=== PATIENT | female | born 1945 ===

== ENCOUNTER 2024-02-29 06:35 | Day surgery (SDC) | payer BC, SELFPAY ==
[2024-02-29] VITALS (10 sets, daily range): BP systolic 110–158; BP diastolic 59–94; BMI 21.0
[2024-02-29 10:41] LABS: Hematocrit 25.2 % (37.0-47.0); Hemoglobin 8.6 g/dL (12.0-16.0); Mean Corp Hgb Conc. 34.1 g/dL (33.0-37.0); Mean Corpuscular Hgb 32.1 pg (27.0-31.0); Mean Platelet Volume 8.4 fL (7.4-10.4); Platelet Count 414 10^3/uL (130-400); Red Blood Cell Count 2.68 10^6/uL (4.20-5.40); Red Cell Dist. Width 13.1 % (11.5-14.5); White Blood Cell Count 7.8 10^3/uL (4.8-10.8)
[2024-02-29 19:06] LABS: Hematocrit 34.3 % (37.0-47.0); Hemoglobin 11.9 g/dL (12.0-16.0)
[2024-02-29] MEDS: ANCEF 5 IV (19:49)
== END 2024-02-29 19:56 | disposition home or self-care (01) ==
LOC: SDS 06:35
PROVIDERS: ATTENDING PHYSICIAN Orthopaedic Surgery Hand Surgery
DX: S42.201A Unspecified fracture of upper end of right humerus, initial encounter for closed fracture (principal); S52.591A Other fractures of lower end of right radius, initial encounter for closed fracture; W19.XXXA Unspecified fall, initial encounter
CPT/HCPCS: 23472; 25606; 73100; 76000; 85014; 85018; 85027; 86850; 86900; 86901; 86920; 93005; C1713; C1776; P9016